=== PATIENT | male | born 1960 | race Caucasian/White ===

== ENCOUNTER 2019-02-22 11:44 | Emergency (ER) | payer OTHER, SELFPAY ==
[2019-02-22 11:46] VITALS: BP 114/69; PULSE 70; RESP 18; TEMP 36.3; O2SAT 97; BMI 25.8
[2019-02-22] MEDS: Diphth,Pertuss(Acell),Tet Vac 0.5 ML Vial IM (12:13)
--- NOTE | 2019-02-22 12:15 | ED.DCSUM_ITS ---
- ER Visit Summary Date of Service: 02/22/19 Chief Complaint: Right index finger laceration History of Present Illness: The patient is a 58 M presenting with right index finger laceration. Patient accidentally cut his finger with a saw just prior to arrival. He is right-handed. His last tetanus is unknown. He applied a tourniquet at home. No other injuries. Physical Examination: Vitals are stable. Patient is afebrile. Alert no acute distress. HEENT exam is unremarkable. Neck is supple. Lungs are clear and equal bilaterally. Heart is regular rate and rhythm. Extremities 3 cm flap laceration distal right index finger. Tendon function is normal. Normal cap refill. No active bleeding. Skin is warm and dry. No focal neurologic deficit. Remainder of exam is unremarkable. Emergency Department Course and Treatment: Patient was given tetanus IM. Right hand xray shows soft tissue laceration overlying the distal interphalangeal joint of the index finger. Digital block was performed. Wound was copiously irrigated. 5, 5-0 simple sutures were placed. Patient tolerated this well. Advised wound care instructions. Advised to follow-up with primary care physician. Advised return to ED if worsening complaints. Disposition: Discharge home Impression: Right index finger laceration, laceration repair This note was generated with [employer] dictation software. It may contain incorrect words, spelling, and punctuation that were not noted in review of the chart prior to signing ED Disposition - Plan for ED Patient: Instructions: LACERATION, Hand Referrals: Henry Cuevas MD [Primary Care Provider] -
--- NOTE | 2019-02-22 12:20 | RAD_ITS ---
STUDY: X-RAY - RIGHT HAND REASON FOR EXAM: Male, 58 years old. Laceration injury. TECHNIQUE: 3 view(s) of the hand. COMPARISON: None. FINDINGS: Normal radiocarpal articulation. Normal distal radioulnar joint. Normal visualized carpal bones. Normal carpal articulations Normal carpometacarpal articulation of the thumb. Normal second through fifth carpometacarpal joints. Normal metacarpi. Normal metacarpophalangeal joint of the thumb. Normal interphalangeal joint of the thumb. Normal proximal and distal phalanges of the thumb. Normal metacarpophalangeal joints of the second through fifth fingers. Normal proximal and distal interphalangeal joints of the second through fifth fingers. Normal phalanges of the second through fifth fingers. Soft tissue laceration overlying the distal interphalangeal joint of the index finger. No radiopaque foreign body is seen. RAD/Hand Min 3 Views IMPRESSION: Soft tissue laceration overlying the distal interphalangeal joint of the index finger. Electronically Signed: Moises Parson, at 13:02 EST , Service support ,
--- NOTE | 2019-02-22 14:33 | ED.DEP ---
ED Disposition - Plan for ED Patient: Instructions: LACERATION, Hand Referrals: Henry Cuevas MD [Primary Care Provider] -
[2019-02-22 14:48] VITALS: RESP 16
== END 2019-02-22 14:49 | disposition home or self-care (01) ==
PROVIDERS: Emergency Provider Emergency Medicine; Family Provider Family Medicine; PCP Family Medicine
DX: S61.210A Laceration without foreign body of right index finger without damage to nail, initial encounter (principal); W27.0XXA Contact with workbench tool, initial encounter; Y93.9 Activity, unspecified; Y92.9 Unspecified place or not applicable; Z72.0 Tobacco use
CPT/HCPCS: 12002; 73130; 90471; 90715; 99283

== ENCOUNTER → 2024-12-28 | Outpatient (CLI) | payer MEDICAID, SELFPAY ==
--- NOTE | 2024-12-28 13:10 | MRI_ITS ---
PROCEDURE: UPPER EXT JOINT ONLY(ROUTINE) 12/28/2024 REASON FOR EXAM: 10 FOOT FALL, ? TENDON TEAR TECHNIQUE: Procedure Code: MRIUEJ Modality: MR Procedure: MRI of the left shoulder without contrast. Multiplanar and multisequence images were obtained without IV contrast administration. COMPARISON: COMPARISON: None. FINDINGS: Moderate left acromioclavicular joint degenerative changes are seen, with marked associated joint space narrowing. A moderately large amount of fluid is subacromial/subdeltoid bursa is seen. The left glenohumeral joint demonstrates no significant arthritic process. A xebvn-op-[id number] sized left glenohumeral joint effusion is noted. Rotator cuff: Extending from the bursal surface to the footplate is seen a moderate-sized supraspinatus tendon tear. No significant degree tendon retraction is noted. No infraspinatus tendon tear is seen. Partial tear of the subscapularis muscle is also noted. The long head of the biceps tendon appears intact. MRI/Upper Ext Joint Only(Routine) IMPRESSION: 1. Moderate-sized supraspinatus tendon tear. No significant tendon retraction is noted. 2. Partial tear of the subscapularis muscle. 3. Glenohumeral joint effusion combined with substantial fluid in the subacromi al/subdeltoid bursa. 4. Moderate left acromioclavicular joint degenerative changes. Reading Location: [id number]
--- NOTE | 2024-12-28 13:10 | MRI_ITS ---
PROCEDURE: UPPER EXT JOINT ONLY(ROUTINE) 12/28/2024 REASON FOR EXAM: 10 FOOT FALL, ? TENDON TEAR TECHNIQUE: Procedure Code: MRIUEJ Modality: MR Procedure: MRI of the left shoulder without contrast. Multiplanar and multisequence images were obtained without IV contrast administration. COMPARISON: COMPARISON: None. FINDINGS: Moderate left acromioclavicular joint degenerative changes are seen, with marked associated joint space narrowing. A moderately large amount of fluid is subacromial/subdeltoid bursa is seen. The left glenohumeral joint demonstrates no significant arthritic process. A nrhvv-tu-[id number] sized left glenohumeral joint effusion is noted. Rotator cuff: Extending from the bursal surface to the footplate is seen a moderate-sized supraspinatus tendon tear. No significant degree tendon retraction is noted. No infraspinatus tendon tear is seen. Partial tear of the subscapularis muscle is also noted. The long head of the biceps tendon appears intact. MRI/Upper Ext Joint Only(Routine) IMPRESSION: 1. Moderate-sized supraspinatus tendon tear. No significant tendon retraction is noted. 2. Partial tear of the subscapularis muscle. 3. Glenohumeral joint effusion combined with substantial fluid in the subacromi al/subdeltoid bursa. 4. Moderate left acromioclavicular joint degenerative changes. Reading Location: [id number]
== END | disposition home or self-care (01) ==
LOC: MRI 13:00
PROVIDERS: Referring Provider Orthopaedic Surgery Sports Medicine; Visit Provider Orthopaedic Surgery Sports Medicine
DX: M25.512 Pain in left shoulder (principal)
CPT/HCPCS: 73221

== ENCOUNTER 2025-02-13 07:53 | Day surgery (SDC) | payer MEDICAID, SELFPAY ==
--- NOTE | 2025-01-31 18:34 | PAT.ANE_ITS ---
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 When Was Last Pacemaker Check QUESTION #4 FULL TEXT: You/Your Family Experience fever (hyperthermia) with Anesthesia Last Oral Intake Last Oral intake: Last Oral Intake NPO since Meds taken in AM with sips of water? Meds patient instructed to take am of surgery PONV PONV - granite block paver: PONV - granite block paver Female No 01/31/25 15:42 HX of Motion Sickness No 01/31/25 15:42 HX of N/V After Surgery No 01/31/25 15:42 Non-Smoker Yes 01/31/25 15:42 Duration of Surgery greater Yes 01/31/25 15:42 than 60 minutes Number of Risk Factors 2 01/31/25 15:42 PONV Score Moderate Risk 01/31/25 15:42 Height & Weight Height & Weight: Anesthesia: Height & Weight Height 5 ft 7 in 12/25/24 09:50 Respiratory Assessment Respiratory Assessment - granite block paver: Respiratory Tract Infection Hx - granite block paver Hx Respiratory Tract Infection No 01/31/25 15:42 STOP Sleep Apnea STOP Sleep Apnea - granite block paver: STOP Sleep Apnea - granite block paver Hx Hypertension No 01/31/25 15:42 Hx Sleep Apnea Yes 01/31/25 15:42 CPAP Yes 01/31/25 15:42 BIPAP No 01/31/25 15:42 Do you snore loudly (louder than talking or can be heard Do you often feel tired/ fatigued/ sleepy during daytime? Has anyone observed you stop breathing during sleep? STOP Results Positive 01/31/25 15:42 QUESTION #5 FULL TEXT : Do you snore loudly (louder than talking or can be heard through closed doors)? 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 Specify any problems Hx of Preganancy in last 3 N/A 01/31/25 15:42 Months Nurse Filling Out Transfusion [email or web address] 01/31/25 15:42 & Questions: Date: 01/31/25 01/31/25 15:42 Time: 15:44 01/31/25 15:42 Patient unable to answer at this time (ie. confused, unrespo /Reproduction History /Reproductive History - granite block paver: /Reproductive Hx- granite block paver Hx Now No 01/31/25 15:42 Gestational Age (in weeks): EDC: Hx Hx Para Hx Section SAB No 01/31/25 15:42 PFSH Medical History Wears glasses Wears hearing aid Loss of hearing Alcohol use High cholesterol BPH (benign prostatic hyperplasia) Dietary restriction CPAP (continuous positive airway pressure) dependence Sleep apnea Former smoker Arthrosis of left acromioclavicular joint Left rotator cuff tear Left shoulder pain Home Medications Medication Instructions Recorded Last Taken Type sertraline 100 mg tablet 100 mg PO DAILY 02/22/19 Unk nown History Held on 01/31/25. Instructions: NO atorvastatin 10 mg tablet 10 mg PO QHS 12/31/24 Unknow n History Held on 01/31/25. Instructions: NO tamsulosin 0.4 mg capsule 0.4 mg PO QDAY 12/31/24 Unkn own History Held on 01/31/25. Instructions: ON HOLD Allergy/AdvReac Type Severity Reaction Status Date / Time No Known Allergies Allergy Verified 01/31/25 15:40 Social History Smoking Status: Former smoker Audit: Pertinent Findings Pertinent Findings EKG Perinent findings: November 07, 2024. Sinus rhythm. Possible LAE. Possible left ventricular hypertrophy. Recommendation Anesthesia Recommendation Anesthesia recommendation: OPTIMIZED for anesthesia
[2025-02-13] VITALS (10 sets, daily range): BP systolic 129–174; BP diastolic 67–102; PULSE 80–88; RESP 16; TEMP 36.2–36.4; O2SAT 90–98; BMI 26.9
--- NOTE | 2025-02-13 08:03 | EKG12_ITS ---
Test Reason : PREOP Blood Pressure : */* mmHG Vent. Rate : 89 BPM Atrial Rate : 89 BPM P-R Int : 168 ms QRS Dur : 82 ms QT Int : 352 ms P-R-T Axes : 29 -12 47 degrees QTcB Int : 428 ms Normal sinus rhythm Minimal voltage criteria for LVH, may be normal variant ( R in aVL ) Inferior infarct , age undetermined Abnormal ECG No previous ECGs available Confirmed by Anurag Reilly ([id number]), video tape editor CARMEN MATOS ([id number]) on 02/13/2025 1:52:35 PM Referred By: Temo Henderson Confirmed By: Anurag Reilly
[2025-02-13] MEDS: Lactated Ringers 1,000 ML 15 ML IV (08:27)
--- NOTE | 2025-02-13 08:31 | PCM.PRE.AN2 ---
ASA Classification* ASA Classification ASA Classification: 2 (HTN, elevated pre-op, but normal BP at home ) Assessment & Plan Anesthesia* Anesthesia Assessment Anesthesia Assessment: Discussed sedation and/or anesthesia options, risks, benefits, and alternatives with patient/parents/legal guardian/POA. Questions invited. The patient/parents/legal guardian/POA seems to understand and agrees to proceed with anesthesia plan. Reviewed the physical assessment, medical history, allergy history and patient home medications list prior to surgery/procedure/anesthetic and documented any changes. Performed airway and anesthesia risk assessments. Black Coffee till 0750, no cream. Will proceed with GA at 0950 Anesthesia Type Anesthesia Type: General and Block (interscalene nerve block. Benefits/risks/alternatives explained. Opportunity for questions illicited. 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 When Was Last Pacemaker Check QUESTION #4 FULL TEXT: You/Your Family Experience fever (hyperthermia) with Anesthesia Last Oral Intake Last Oral intake: Last Oral Intake NPO since 08:00 02/13/25 08:18 Meds taken in AM with sips of Yes 02/13/25 08:18 water? Meds patient instructed to take am of surgery PONV PONV - director of public safety: PONV - director of public safety Female No 01/31/25 15:42 HX of Motion Sickness No 01/31/25 15:42 HX of N/V After Surgery No 01/31/25 15:42 Non-Smoker Yes 01/31/25 15:42 Duration of Surgery greater Yes 01/31/25 15:42 than 60 minutes Number of Risk Factors 2 01/31/25 15:42 PONV Score Moderate Risk 01/31/25 15:42 Height & Weight Height & Weight: Anesthesia: Height & Weight Height 5 ft 7 in 02/13/25 08:18 Weight: 78 kg 02/13/25 08:18 Body Mass Index (BMI) 26.9 02/13/25 08:18 Respiratory Assessment Respiratory Assessment - director of public safety: Respiratory Tract Infection Hx - director of public safety Hx Respiratory Tract Infection No 01/31/25 15:42 STOP Sleep Apnea STOP Sleep Apnea - director of public safety: STOP Sleep Apnea - director of public safety Hx Hypertension No 01/31/25 15:42 Hx Sleep Apnea Yes 01/31/25 15:42 CPAP Yes 01/31/25 15:42 BIPAP No 01/31/25 15:42 Do you snore loudly (louder than talking or can be heard Do you often feel tired/ fatigued/ sleepy during daytime? Has anyone observed you stop breathing during sleep? STOP Results Positive 01/31/25 15:42 QUESTION #5 FULL TEXT : Do you snore loudly (louder than talking or can be heard through closed doors)? 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 Specify any problems Hx of Preganancy in last 3 N/A 10/30/25 15:42 Months Nurse Filling Out Transfusion [email or web address] 01/31/25 15:42 & Questions: Date: 01/31/25 01/31/25 15:42 Time: 15:44 01/31/25 15:42 Patient unable to answer at this time (ie. confused, unrespo /Reproduction History /Reproductive History - director of public safety: /Reproductive Hx- director of public safety Hx Now No 01/31/25 15:42 Gestational Age (in weeks): EDC: Hx Hx Para Hx Section SAB No 01/31/25 15:42 Does the father of the baby or his family experience fever w Father of the baby Malignant Hypertension history comment Active Medications Active Medications: Current Medications Generic Name Dose Route Start Last Admin Trade Name Freq PRN Reason Stop Dose Admin Cefazolin Sodium 2 gm/ Sodium 110 mls @ 200 mls/hr 02/13/25 10:00 Chloride IV 02/13/25 10:32 INTRAOP ONE Lactated Ringer's 1,000 mls @ 15 mls/hr 02/13/25 08:15 02/13/25 08:27 IV 15 mls/hr .Q48H LEANDRO Administration PFSH Medical History Wears glasses Wears hearing aid Loss of hearing Alcohol use High cholesterol BPH (benign prostatic hyperplasia) Dietary restriction CPAP (continuous positive airway pressure) dependence Sleep apnea Former smoker Arthrosis of left acromioclavicular joint Left rotator cuff tear Left shoulder pain Home Medications Medication Instructions Recorded Last Taken Type sertraline 100 mg tablet 100 mg PO DAILY 02/22/19 02/13/25 History atorvastatin 10 mg tablet 10 mg PO QHS 12/31/24 02/13/25 History tamsulosin 0.4 mg capsule 0.4 mg PO QDAY 12/31/24 02/13/25 History Allergy/AdvReac Type Severity Reaction Status Date / Time No Known Allergies Allergy Verified 02/13/25 08:15 Social History Smoking Status: Former smoker Review of Systems (Anesthesia) ROS Narrative System reviewed and no additional complaints, except as documented. Physical Exam Const alert, oriented x3 and average body habitus Resp normal respiratory effort, normal air movement and clear to auscultation bilaterally Cardio regular rate, regular rhythm and no murmurs; Negative for diaphoretic
--- NOTE | 2025-02-13 08:48 | PCM.HP.STD ---
HPI - General HPI Narrative JENNIFFER TAM, is a 64 M who presents for left shoulder arthroscopy, subacromial decompression, rotator cuff repair, biceps tenodesis (subscap and SS tear). No changes to history and physical exam. Left shoulder marked. Plan for block. Risks alternatives benefits discussed as well as postoperative instructions and narcotic counseling. Patient understands wished to proceed no further questions or concerns MR#: [id number] Acct: [id number] Name: JENNIFFER TAM Rep #: [id number] : 1960 Provider: Dr. Temo Henderson MD Age/Sex: 64/M [place] [facility] [place]: Signed Intake Vital Signs 12/25/2508:50 Height 5 ft 7 in Weight: 172 lb BMI 26.9 Intake Visit Reasons: LEFT SHOULDER Chief Complaint: Left Shoulder MRI Review Is patient in pain?: Yes (Left shoulder) Pain scale (1-10): 4 Allergies No Known Allergies Allergy (Verified 12/31/24 11:21) Medications Medication Instructions Recorded Confirmed Type sertraline 100 mg tablet 100 mg PO DAILY 02/22/19 12/31/24 History atorvastatin 10 mg tablet 10 mg PO QHS 12/31/24 12/31/24 History tamsulosin 0.4 mg capsule 0.4 mg PO QDAY 12/31/24 12/31/24 History terbinafine HCl 250 mg tablet 250 mg PO QDAY 12/31/24 12/31/24 History PFSH Medical History Arthrosis of left acromioclavicular joint Left rotator cuff tear Left shoulder pain Social History Smoking Status: Current every day smoker HPI LEFT SHOULDER Details: This documentation accurately reflects the service provided and the decisions made by me, Dr. Temo Henderson MD 12/31/24 0843. Part of today’s visit was documented by [ ], acting as scribe. JENNIFFER TAM is a 64 year old M here today for review L shoulder MRI. Supplemental Info [facility] Imaging Services [address], [place] [id number] Upper Ext Joint Only(Routine) MR#: [id number] Acct: [id number] Name: JENNIFFER TAM Rep #: [id number] : 1960 M 64 From: River Zaldivar MD PCP: Care Physician,No Primary Status: REG CLI Study: Upper Ext Joint Only(Routine) Date of Exam: 12/28/24 Exam# [id number] Ordering Dr: Temo Henderson MD PROCEDURE: UPPER EXT JOINT ONLY(ROUTINE) 12/28/2024 REASON FOR EXAM: 10 FOOT FALL, ? TENDON TEAR TECHNIQUE: Procedure Code: MRIUEJ Modality: MR Procedure: MRI of the left shoulder without contrast. Multiplanar and multisequence images were obtained without IV contrast administration. COMPARISON: COMPARISON: None. FINDINGS: Moderate left acromioclavicular joint degenerative changes are seen, with marked associated joint space narrowing. A moderately large amount of fluid is subacromial/subdeltoid bursa is seen. The left glenohumeral joint demonstrates no significant arthritic process. A srfzv-rr-jysderrv sized left glenohumeral joint effusion is noted. Rotator cuff: Extending from the bursal surface to the footplate is seen a moderate-sized supraspinatus tendon tear. No significant degree tendon retraction is noted. No infraspinatus tendon tear is seen. Partial tear of the subscapularis muscle is also noted. The long head of the biceps tendon appears intact. MRI/Upper Ext Joint Only(Routine) IMPRESSION: 1. Moderate-sized supraspinatus tendon tear. No significant tendon retraction is noted. 2. Partial tear of the subscapularis muscle. 3. Glenohumeral joint effusion combined with substantial fluid in the subacromial/subdeltoid bursa. 4. Moderate left acromioclavicular joint degenerative changes. Reading Location: [address] Coding Level of Care Code Off vis,est,level 4 Diagnoses Left shoulder pain M25.512 Left rotator cuff tear M75.102 Arthrosis of left acromioclavicular joint M19.012 Assessment and Plan Assessment and Plan (1) Left shoulder pain: Status: Acute Plan: 64 yr M with L shoulder cuff tear, subscap tear, ACJ arthrosis. Surgical option for this to be a left shoulder arthroscopy, subacromial decompression, rotator cuff repair, biceps tenodesis. No pain at ACJ so will not do a DCE. Explained the options. This appears to be an acute tear which tends to do better with early surgical intervention to fix the tear. Other option is conservative mgt, this can get worse or large with time, or harder to fix. He wishes to proceed with surgery, and signed the consent form. Pros and cons risks and benefits were discussed with the patient including but not limited to infection, pain, stiffness, bleeding, damage to surrounding structures, neurovascular injury, recurrence or retear, failure or wear of hardware or fixation, instability, fracture, deep vein thrombosis and pulmonary embolism, anesthetic risks, , patient dissatisfaction, need for further surgery and other risks. Patient understood and wished to proceed with surgery, and signed the informed consent documentation. Patient counselled on non-operative and operative means of treating shoulder pain. Conservative options include but not limited to: 1. Rest and Activity Modification: Giving your shoulder time to heal by avoiding movements that cause pain can help. This may involve limiting overhead activities or heavy lifting. 2. Physical Therapy: A physical therapist can guide you through exercises that strengthen the muscles around the shoulder, improve flexibility, and reduce strain on the rotator cuff tendon. 3. Ice and Heat Therapy: Applying ice to the shoulder can help reduce swelling and pain, especially after activity. Heat can be helpful to relax tense muscles and improve blood flow before exercises. 4. Anti-Inflammatory Medications: Latx-kcp-repycct medications like ibuprofen or naproxen can help reduce pain and inflammation in the tendon. 5. Corticosteroid Injections: If the pain is more severe, a steroid injection can reduce inflammation in the shoulder and provide relief for a longer period. 6. Platelet-Rich Plasma (PRP) Injection: This treatment involves using your own blood to promote healing in the tendon. The plasma is rich in growth factors that can encourage tissue repair. 7. TENS (Transcutaneous Electrical Nerve Stimulation): This therapy uses a small electrical current to help manage pain and promote healing by stimulating nerves. (2) Left rotator cuff tear: Status: Acute (3) Arthrosis of left acromioclavicular joint: Status: Acute Ortho Exam Left Shoulder Testing: No cross arm SHOULDER: no pain at the ACJ [facility] Medical History Wears glasses Wears hearing aid Loss of hearing Alcohol use High cholesterol BPH (benign prostatic hyperplasia) Dietary restriction CPAP (continuous positive airway pressure) dependence Sleep apnea Former smoker Arthrosis of left acromioclavicular joint Left rotator cuff tear Left shoulder pain Home Medications Medication Instructions Recorded Last Taken Type sertraline 100 mg tablet 100 mg PO DAILY 02/22/19 02/13/25 History atorvastatin 10 mg tablet 10 mg PO QHS 12/31/24 02/13/25 History tamsulosin 0.4 mg capsule 0.4 mg PO QDAY 12/31/24 02/13/25 History Allergy/AdvReac Type Severity Reaction Status Date / Time No Known Allergies Allergy Verified 02/13/25 08:15 Social History Smoking Status: Former smoker Vital Signs Vital Signs Vital Signs: 02/13/25 08:18 02/13/25 08:18 02/13/25 08:34 Temperature 97.1 F L 97.1 F L Temperature Source Temporal Pulse Rate 88 88 Respiratory Rate 16 16 Respiratory Pattern Normal Blood Pressure 167/98 H 167/98 H Blood Pressure Mean 121 Blood Pressure Source Monitor Blood Pressure Position Semi-Fowlers Blood Pressure Location Right Arm Pulse Ox 98 98 Oxygen Delivery Method Room Air Weight Weight: 171 lb 15.369 oz Body Mass Index (BMI) 26.9 D/C Safety Score for UGIB Assessment Wilberto-Blatchford Bleeding Score (GBS): Stratifies upper GI bleeding patients who are "low-risk" and candidates for outpatient management. Sex: Male Hemoglobin, BUN, Recent Vital Signs: Pulse Rate 88 Blood Pressure 167/98 Total Risk Score: 2 Score Interpretation: Score of 0: A GBS of 0 is a “Low Risk” GI bleed, and is highly sensitive (99.6% in a 2007 retrospective study) for predicting which patients did not require any “medical intervention”: blood transfusion, endoscopy, or surgery. This was confirmed in a 2009 Lancet study where patients with a score of 0 were actually discharged and had no GI bleeding mortality at 6 month followup Score above 0: A GBS greater than zero suggests a “High Risk” GI bleed that is likely to require “medical intervention”: transfusion, endoscopy, or surgery. A higher GBS also correlated with a higher likelihood of needing intervention Scores >/= 6 are associated with >50% risk of needing intervention D/C Safety Score for LGIB Assessment Assessment Tool: Readmission and adverse event risk in patients with acute lower GI bleeding. Age, in years: 40-69 Sex: Male Hemoglobin and Recent Vital Signs: Pulse Rate 88 02/13/25 08:34 Blood Pressure 167/98 02/13/25 08:34 Probability of safe discharge: 99% Total Risk Score: 2 Score Interpretation: Probability Percentage of safe discharge (absence of rebleeding, blood transfusion, therapeutic intervention, 28 day readmission, or ) Score of 8 or below: Consider discharge, with appropriate precautions. Score of 9 or above: Discharge NOT recommended. Consider admission with further workup and resuscitation as necessary.
[2025-02-13] MEDS: Midazolam 2 MG/2 ML Syringe IV (12:34)
[2025-02-13] MEDS: Cefazolin 1 GM/5 ML Vial 2 GM IV (13:22)
[2025-02-13] MEDS: Lidocaine 1% (5 ml sdv) 5 ML Vial 8 ML IV (13:27)
[2025-02-13] MEDS: Epinephrine (1 mg/ml) 1 MG/ML VIAL (13:43)
--- NOTE | 2025-02-13 15:10 | EX.PCM.DISCH ---
Discharge Instructions Diet Discharge Diet: No restrictions Activity Discharge Activity: May Shower Ice area for (Minutes): 10 Lifting Restrictions: no lifting over 1 pound, ok for pendulums, elbow wrist hand rom 4x/day Additional Activity Instructions:: ok to remove sling at rest, sleep in sling. Dressing / Incision Call your doctor if your incision/area has: Continuous Slow Oozing, Sudden Increased Bleeding, Increased Pain/ Swelling, Increased Redness, Foul Smelling Discharge and Swelling at the incision site Call your doctor if you observe: Fever of 101 or Higher, Coldness, Increased Pain and Numbness or Tingling Change Dressing in: leave in place till F/U Cleanse incision/area with: Do not get Incision Wet Follow Up Care Please Follow Up With: Temo Henderson MD When: within 2 weeks Test Results: Test results from this visit will be discussed in further detail at your follow-up appointment, if applicable. Discharge Plan Admission Attending Provider: Temo Henderson Primary Care Provider: Deb Leiva Instructions Patient Instructions: Rotator Cuff Injury Print Language: Cape Verdean Discharge Orders/Prescriptions Prescriptions: New oxycodone-acetaminophen [Percocet] 5-325 mg tablet 1 tab PO Q4H MDD 6 PRN (Reason: pain) 5 Days Qty: 20 0RF No Action atorvastatin 10 mg tablet 10 mg PO QHS tamsulosin 0.4 mg capsule 0.4 mg PO QDAY sertraline 100 MG tablet 100 mg PO DAILY Patient Comments: TAKE ONE TABLET BY MOUTH DAILY Referrals / Follow Up: Temo Henderson MD [Med Staff - Active Staff, Orthopedics] Deb Leiva METAL CLEANER-C [Primary Care Provider, Family Practice] Disposition Disposition (needs filled in before D/C Order can be placed): Home, Self Care
--- NOTE | 2025-02-13 15:13 | OP.PCM_ITS ---
Procedures Musculoskeletal 20xxx-29xxx: Other Procedure See Report Operative Report (Standard) Operative Information Date of Procedure: 02/13/25 Pre-Operative Diagnosis: Left rotator cuff tear impingement syndrome and subscapularis tear Post-Operative Diagnosis: Left shoulder impingement syndrome/tear of the supraspinatus and subscapularis as well as SLAP tear Surgery/Procedure Performed: Left shoulder arthroscopy, subacromial decompression, rotator cuff repair of supraspinatus and subscapularis and subpectoral biceps tenodesis media relations associate: Yes Sueding Machine Operator: yana Tasks completed by engineer assistant: Retracting Additional housing assistant property manager?: No Type of Anesthesia: Block,Regional and General RN Documented Start/Stop Times: Operation Date: 02/13/25 10:00 Case Time Into Pre-Op 02/13/25 08:02 Anesthesia Start 02/13/25 13:22 Into Room 02/13/25 13:22 Procedure Start 02/13/25 13:43 Procedure Start Time: 13:43 Procedure Stop Time: 15:16 Select all DRAINS/GRAFTS/IMPLANTS that apply: Implanted device Implanted device details: As below Estimated Blood Loss: 15 Specimen collected: No Description of surgery: Patient brought to the operating theater. Placed supine on the table. General anesthesia induced. 2 g IV Ancef administered prior to start the case. SCDs on the legs. Patient transferred left side up lateral decubitus beanbag position axillary roll placed all bony prominences padded. Upper extremity prepped and draped in usual sterile fashion with chlorhexidine-based prep solution allowing over 3 minutes drying time prior to draping 10 pounds of inline traction with the arm in 40 degrees of abduction was used. Preoperative timeout performed to confirm the site patient and the surgery. Began by inserting the arthroscope into the intra-articular portion of the shoulder. Did a full diagnostic arthroscopy. There is fraying of the labrum circumferentially gently debrided that and cleaned it up to smooth margins. There is an area at the anterior glenoid of fraying of the cartilage grade 2 changes. Humeral head cartilage normal no loose bodies. Slight synovial hypertrophy in the rotator interval layer excised that. Looked at the superior border of the subscapularis there is slight superior border tearing. There is an obvious SLAP tear. I performed an intra-articular biceps tenotomy to plan for later tenodesis. Debrided the superior labrum. I used shaver and joseph to stimulate healing at the area of the subscapularis superior border. I used 2 Arthrex #2 fiber link sutures in a luggage tag configuration at the upper border. I inserted these into an Arthrex 4.75 mm bio composite swivel lock anchor. This achieved good purchase and the repair of the subscapularis. There is an obvious full-thickness tear of the supraspinatus that was delaminated. I did pictures arthroscopy pictures throughout saved onto the system. Arthroscope withdrawn and inserted the subacromial space. Did a bursectomy, moderate bursitis removed and debrided. Subacromial decompression for mild downsloping using high speed joseph for 4mm. I used accessory anterior portal through the rotator interval as well as 2 accessory lateral portals using cannulas. I mobilized the tear, it was mobile. It was delaminated into 2 layers. I cleaned away any remaining soft tissue at the greater tuberosity. I flatten the greater tuberosity using a joseph. I stimulated multiple healing sites using Arthrex power pick instrument. I placed 3 Arthrex 2.4 mm RC fiber tack anchors just off the footprint for the medial row. I passed the sutures from inferior to superior through the rotator cuff ensuring that the medial row was outside of the planned split fibertape sutures. I then cut at the wedge portion of the sutures. I used a 3 ends from each fiber tape suture to dunk into 1 Arthrex 4.75 mm bio composite swivel lock anchor just off the footprint at the greater tuberosity. I did the same thing with the other 3 sutures. This created a suture configuration with 3 anchors medially and 2 anchors laterally. I then converted the 2 sutures for the knotless medial row and I made sure that these were through the inferior aspect of the delaminated portion of the rotator cuff, tightened these and cut short. Arthroscopy pictures taken and saved onto the system. I then turned my attention to performing the subpectoral biceps tenodesis. I made a small 1 inch incision longitudinally at the upper proximal aspect of the humerus overlying the long head of the biceps tendon. I carried the dissection down through skin and subcutaneous tissue achieved meticulous hemostasis. Incised the fascia in line with skin incision. Identified long head of biceps tendon delivered this through the incision. I then made a unicortical drill hole at the mid aspect of the humerus. Cleared away any interposed bone dust. I used the Arthrex all suture LHB fiber tack anchor. I set the anchor I elongated the loop. I passed the loop through the midportion of the long head biceps tendon judging attention in that manner. I then used the repair suture through the loop over top of the biceps and then converted that using the other sutures. I then pulled on the other free end of the sutures to then pull on the loop that was through the tendon I went back and forth sequentially to tension these to appropriately and then truncated the biceps short and cut the sutures. Once thoroughly irrigated subcutaneous tissue closed with 2-0 Vicryl suture through skin with 3-0 Monocryl. Skin cleaned with wet dry dressing followed application of Steri-Strips Adaptic 4 x 4 gauze ABD dressing cloth tape and an abduction pillow sling for the upper extremity. Patient woken up from general anesthetic consult operating table taken to postanesthetic care unit in stable condition. All sponge needle counts were correct no complications plan to the patient discharge home according to day surgery criteria follow-up in the office within 2 weeks [place]. cpt 59892, 33617, 47722, [address]003 Surgical Findings: As above Complications Complications: No Admit VTE Documentation VTE Present on Admission: No VTE Mechan Device Prophylaxis: SCD's VTE Pharm Prophylaxis ordered?: No Reason prophylaxis not ordered: Treatment Not Indicated
--- NOTE | 2025-02-13 15:29 | PCM.POST.ANE ---
Anesthesia: Postop Eval I Current Vital Signs Temperature: 97.6 F Pulse Rate: 81 Blood Pressure: 152/67 Respiratory Rate: 16 Pulse Ox: 92 Assessment Airway patent: Yes Spontaneous unlabored respirations: Yes nausea: No Vomiting: No Anesthesia Complication: No Fluid Hydration Crystalloid volume administer (ml): 1,200 Total IV fluid infused: 1,200 Progress Note Anesthesia document: Postop Eval 1 completed: Yes
--- NOTE | 2025-02-13 16:27 | POSTOPAN2_ITS ---
Anesthesia Postop Eval I Sum Postop Eval Completion status Anesthesia document: Postop Eval 1 completed: Yes Anesthesia Postop Eval I Summary Anesthesia Postop Eval I Summary: Anesthesia Postop Eval I: Assessment Summary Airway patent Yes 02/13/25 15:29 [email or web address] Spontaneous unlabored Yes 02/13/25 15:29 [email or web address] respirations Mental status nausea No 02/13/25 15:29 [email or web address] Vomiting No 02/13/25 15:29 [email or web address] Anesthesia Postop Eval I: Fluid Summary Crystalloid volume administer 1,200 02/13/25 15:29 [email or web address] (ml) Colloids volume administered ( ml) Blood Product volume administered (ml) Total IV fluid infused 1,200 02/13/25 15:29 [email or web address] Anesthesia Postop Eval I: Summary Notes Anesthesia Complication No 02/13/25 15:29 [email or web address] Anesthesia Complication Comment: Post-operative progress note Anesthesia: Postop Eval II Evaluation Mental status: Awake Pain Level: 0 nausea: No Vomiting: No Complications Anesthesia Complication: No
--- NOTE | 2025-02-13 16:27 | PCM.POSTANE2 ---
Anesthesia Postop Eval I Sum Postop Eval Completion status Anesthesia document: Postop Eval 1 completed: Yes Anesthesia Postop Eval I Summary Anesthesia Postop Eval I Summary: Anesthesia Postop Eval I: Assessment Summary Airway patent Yes 02/13/25 15:29 RURAL [email or web address] Spontaneous unlabored Yes 02/13/25 15:29 RURAL MAIL [email or web address] respirations Mental status nausea No 02/13/25 15:29 RURAL [email or web address] [email or web address] Vomiting No 02/13/25 15:29 RURAL MAIL [email or web address] Anesthesia Postop Eval I: Fluid Summary Crystalloid volume administer 1,200 02/13/25 15:29 RURAL [email or web address] (ml) Colloids volume administered ( ml) Blood Product volume administered (ml) Total IV fluid infused 1,200 02/13/25 15:29 RURAL MAIL [email or web address] Anesthesia Postop Eval I: Summary Notes Anesthesia Complication No 02/13/25 15:29 RURAL [email or web address] [email or web address] Anesthesia Complication Comment: Post-operative progress note Anesthesia: Postop Eval II Evaluation Mental status: Awake Pain Level: 0 nausea: No Vomiting: No Complications Anesthesia Complication: No
== END 2025-02-13 17:18 | disposition home or self-care (01) ==
LOC: SDC 07:54 → AC 07:55
PROVIDERS: PCP Nurse Practitioner Family; Referring Provider Orthopaedic Surgery Sports Medicine; Visit Provider Orthopaedic Surgery Sports Medicine
DX: M75.102 Unspecified rotator cuff tear or rupture of left shoulder, not specified as traumatic (principal); M19.012 Primary osteoarthritis, left shoulder; M75.42 Impingement syndrome of left shoulder; M75.52 Bursitis of left shoulder; S43.432A Superior glenoid labrum lesion of left shoulder, initial encounter; X58.XXXA Exposure to other specified factors, initial encounter; Z87.891 Personal history of nicotine dependence
CPT/HCPCS: 29827; 29828; 29826; 01630; 64415; 93005; C1713; J2405